=== PATIENT | female | born 1970 | race Caucasian/White ===

== ENCOUNTER 2018-04-25 00:16 | Emergency (ER) | payer SELFPAY ==
[~2018-04-25] VITALS: Ht 180.3 cm; Wt 72.6 kg
[2018-04-25] MEDS ORDERED: CIPROFLOXACIN HCL 500 MG TABLET PO ONE (00:30)
[2018-04-25 00:31] VITALS: BP 120/68
[2018-04-25] MEDS ORDERED: CIPROFLOXACIN HCL 500 MG TABLET ONE (00:44)
== END 2018-04-25 00:58 | disposition home or self-care (01) ==
LOC: ER 00:18
DX: Z79.2 Long term (current) use of antibiotics (principal); Z20.811 Contact with and (suspected) exposure to meningococcus
CPT/HCPCS: 99282; A4606; Z7610